=== PATIENT | female | born 1990 | race Caucasian/White ===

== ENCOUNTER 2018-10-17 18:25 | Emergency (ER) | payer OTHER ==
[2018-10-17] MEDS ORDERED: FIORICET 325 MG1 TAB PO (18:38)
[2018-10-17] MEDS ORDERED: ATIVAN0.5 MG (18:38)
[2018-10-17] MEDS ORDERED: CLARITIN 1010 MG/TAB PO (18:39)
[2018-10-17] MEDS ORDERED: FLONASE ALLERG9.9 ML NS (18:39)
[2018-10-17] MEDS ORDERED: AMOXICILLIN 50500 MG PO (19:02)
[2018-10-17] MEDS ORDERED: NORCO 325 MG-51 TA1 PO (19:02)
[2018-10-17 19:19] VITALS: BP 118/81
== END 2018-10-17 19:20 | disposition home or self-care (01) ==
LOC: ED 18:25
DX: K08.89 Other specified disorders of teeth and supporting structures (principal); K02.9 Dental caries, unspecified; F17.210 Nicotine dependence, cigarettes, uncomplicated; Q05.9 Spina bifida, unspecified; F17.200 Nicotine dependence, unspecified, uncomplicated; F41.9 Anxiety disorder, unspecified